=== PATIENT | male | born 1960 ===

== ENCOUNTER 2017-04-03 01:15 | Inpatient (IN) ==
--- NOTE | 2017-04-03 01:42 | Emergency Department Note ---
Arrival - Arrival Chief Complaint: Upper Respiratory Stated Complaint: Upper Respiratory ED Nursing Triage Note: Patient presents via EMS transfer from [facility] for further care of dx of pneumonia. Mode of Arrival: Stretcher Time Seen by Provider: 04/03/17 01:24 - History of Present Illness HPI Narrative: This is a 56-year-old with a history of coronary artery disease status post previous myocardial infarction status post cardiac catheterization with stent placement, congestive heart failure, peripheral vascular disease, chronic renal failure on hemodialysis Monday, type 2 diabetes, hypertension, hyperlipidemia, who smokes a pack of cigarettes per day, with a positive PPD who presented to the [facility] complaining of shortness of breath and a nonproductive cough for the past 3 days associated with low-grade fever where a workup included a chest x-ray and laboratory tests suggesting that the patient had pneumonia. He was transferred to the emergency department at [facility] for admission and intravenous antibiotics he was given Levaquin in the emergency department. Allergies/Adverse Reactions: Allergies Allergy/AdvReac Type Severity Reaction Status Date / Time No Known Allergies Allergy Unverified 05/22/16 23:21 Home Medications: Home Medications Medication Instructions Recorded Confirmed Type Aspirin [Ecotrin] 81 mg PO DAILY 05/23/16 06/13/16 History Atorvastatin [Lipitor] 80 mg PO DAILY 05/23/16 06/13/16 History Calcium Acetate [Phoslo] 3 tablet PO TID 05/23/16 06/13/16 History Carvedilol 6.25 mg PO BID 05/23/16 06/13/16 History Pravastatin [Pravachol] 20 mg PO BEDTIME 05/23/16 06/13/16 History Vit B Cmplx 3/Folic AC/C/Biot 1 tablet PO DAILY 05/23/16 06/13/16 History [Nephro-G[place]na Rx Tablet] Insulin Detemir [Levemir FlexPen] 20 unit SUBCUT BEDTIME 06/13/16 06/13/16 History glyBURIDE [Glyburide] 5 mg PO BID 06/13/16 06/13/16 History Review of System - Review of System Constitutional: Present: fever. Absent: night sweats, weakness Eyes: Absent: redness, vision change Head/Ears/Nose/Throat: Absent: epistaxis, nasal drainage Respiratory: Present: cough. Absent: respiratory distress Cardiovascular: Present: dyspnea on exertion. Absent: chest pain, orthopnea Gastrointestinal: Absent: vomiting, diarrhea, constipation Genitourinary male: Absent: dysuria, hematuria Musculoskeletal: Absent: joint swelling, lower back pain Skin: Absent: change in color, change in hair/nails Neurological: Present: numbness, paresthesias Psychiatric: Absent: anxiety, depression Endocrine: Absent: heat intolerance, polydipsia Hematological/Lymphatic: Absent: easy bruising, lymphadenopathy Allergic/Immunologic: Absent: urticaria, itchy eyes Medical,Surgical,& Family Hx - Medical History Cardio: History of: Congenital Heart Disease, CHF, CAD, Hypertension No history of: Aneurysm, Cardiac Dysrhythmia, Cerebrovascular Disease, [place], Pacemaker, PVD, Valvular Heart Disease, Cardiovascular Problems Neurology: No history of: Brain Aneurysm, Cerebral Hemorrhage, Cerebrovascular Accident , Cerebral Palsy, Dementia, Migraine, Multiple Sclerosis, Parkinson's Disease, Peripheral Neuropathy, Seizures, TIA, Vertigo, Neurologocal Cancer Endocrine: History of: Diabetes Mellitus (IDDM) No history of: Adrenal Disease, Dyslipidemia, Thyroid Disorder, Endocrine Cancer, Endocrine Problems Respiratory: History of: Obstructive Sleep Apnea, Respiratory Problems No history of: Asthma, Bronchitis, COPD, Intubation, Pulmonary Embolism, Pulmonary Hypertension, Pneumonia, Lung Cancer Renal: History of: Renal Failure, Renal Problems No history of: Renal (Kidney) Cancer Genitourinary: No history of: Bladder Problem, Kidney Stones, Prostate Problems, Recurring Urinary Tract Infections, Genitourinary Cancer, Problems Gastrointestinal: History of: GERD No history of: Bowel Obstruction, Clostridium Difficile, Crohn's Disease, Diverticulitis/ Diverticulosis, Esophageal Varices, Gastrointestinal Bleed, Hemorrhoids, Hematochezia, Hepatitis, Liver Problems, Pancreatitis, Polyps, Ulcerative Colitis, Gastrointestinal Cancer, GI Problems Musculoskeletal: History of: Amputation Hematology: No history of: Anemia, Bleeding Problems, Clotting Problems, Sickle Cell Disease, Hematologic Cancer, Blood Disorders - Surgical History Cardiac Surgeries: Sugical HX of: Cardiac Catheterization Patient Denies: Femoral-Popliteal Bypass Graft, Cardiac Surgery, Carotid Endarterectomy, Internal Defibrillator, Vascular Access Devices Thoracic Surgeries: Patient denies;: Kidney (Renal Surgery), Lithotripsy, Nephrectomy, Lobectomy Neurologic Surgeries: Patient denies: Brain Aneurysm, Cerebral Hemorrhage, Neurologic Surgery HEENT Surgeries: Patient denies: Carotid Endarterectomy, Eye Surgery, Thyroid Surgery, Tonsilectomy & Adenoidectomy Abdominal Surgeries: Patient denies: Abdominal Surgery, Appendectomy, Cholecystectomy, Colonoscopy , Gastric Bypass Surgery, EGD, Hernia Repair, Splenectomy Reproductive Surgeries: Patient denies;: Breast Surgery, Cystoscopy, Genitourinary Surgery, Prostate Surgery, Vasectomy Orthopedic Surgeries: Patient denies;: Implanted Devices, Orthopedic Surgery, Spinal Surgery, Total Hip Replacement, Total Knee Replacement - Family History Family History: Reports;: Family Cancer, Family Diabetes, Family Heart Disease, Family Hypertension Denies;: Family Anesthesia Reaction, Family Psychiatric Problems, Family Stroke - Social History Smoking Status: Heavy tobacco smoker Frequency of Alcohol Use: None Type of Drug Use: None Exam Vital Signs: Vital Signs Temperature 99.4 F 04/03/17 01:15 Pulse Rate 93 H 04/03/17 01:15 Respiratory Rate 20 04/03/17 01:15 Blood Pressure 144/73 04/03/17 01:15 O2 Sat by Pulse Oximetry 95 04/03/17 01:15 - General Exam limited due to: ALOC - Head Head exam: Present: atraumatic, normocephalic - Eye Eye exam: Present: PERRL, EOMI - ENT ENT exam: Present: normal exam - Neck Neck exam: Present: normal inspection, full ROM - Chest Chest inspection: Present: normal inspection - Respiratory Respiratory exam: Present: other (Rales both bases) - Abdominal Exam Abdominal exam: Present: soft, normal bowel sounds - Extremities Exam Extremities exam: Present: normal inspection, full ROM - Back Exam Back exam: Present: normal inspection, full ROM - Neurological Exam Neurological exam: Present: alert, oriented X3, CN II-XII intact - Psychiatric Psychiatric exam: Present: normal affect, normal mood - Skin Skin exam: Present: warm, dry
[2017-04-03] MEDS ORDERED: ONDANSETRON 4 MG/2 ML VIAL IV PRN (02:03)
[2017-04-03] MEDS ORDERED: DEXTROSE 50% 25 GM/50 ML SYRINGE IV PRN (02:03)
[2017-04-03] MEDS ORDERED: ACETAMINOPHEN 325 MG TABLET PO PRN (02:03)
[2017-04-03] MEDS ORDERED: GLUCAGON 1 MG VIAL IM PRN (02:03)
[2017-04-03] MEDS ORDERED: ALBUTEROL/IPRATROPIUM 3 ML NEB RESP TX PRN (02:10)
--- NOTE | 2017-04-03 03:43 | Hospitalist History & Physical ---
Assessment and Plan - Time spent with patient Time spent with patient: Greater than 30 minutes (1) CAP (community acquired pneumonia) Status: Acute Assessment and plan: Admit to hospitalist services. Telemetry. O2 per unit protocol. CT chest performed in ED; report pending. Azithromycin 500 mg IV Q24 hours. Ceftriaxone 2000 mg IV Q24 hours. DuoNebs Q6 hours PRN Repeat CBC and CMP in AM. Lovenox 30 mg SQ Q24 hours for DVT prophylaxis. Current Visit: Yes (2) ESRD (end stage renal disease) on dialysis Status: Acute Assessment and plan: Patient dialyzes MWF. Consult Nephrology. Continue home dose multivitamin replacement. Current Visit: Yes (3) CHF (congestive heart failure) Status: Acute Assessment and plan: Continue home dose of Coreg 6.25 mg BID. Continue home dose of atorvastatin 80 mg daily. Current Visit: Yes (4) Diabetes mellitus Status: Chronic Assessment and plan: Hold glyburide for now. Diabetic diet. Lantus 20 units SQ at bedtime. Humalog 5 units SQ ACHS. Accuchecks ACHS with SSI. Current Visit: No Qualifiers: Diabetes mellitus type: type 2 Chronic kidney disease stage: on chronic dialysis (5) Hypertension Status: Chronic Assessment and plan: Continue home dose of Coreg 6.25 mg BID. Current Visit: No Qualifiers: Hypertension type: essential hypertension Qualified Code(s): I10 - Essential (primary) hypertension History of Present Illness Chief complaint: Shortness of breath History of present illness: Mr. Sinclair is a 56 year old male who was transferred to the ED from [facility] with complaints of shortness of breath and nonproductive cough that started upon awakening today. At [facility], he was shown to have a mildly elevated WBC count at 12.1, a chest x-ray showing "bilateral pulmonary interstitial and perihilar opacities", and an ECG showing LVH with strain pattern. He was thought to have pneumonia, was given 750 mg of Levaquin IV and was transferred to our ED due to his extensive comorbid conditions. In the ED, a CT chest was performed with report pending. He denies having a known fever or chills, and he has not been hypoxic since arrival. He has a past medical history of ESRD on HD, HTN, IDDM, CAD s/p stent placement, CHF, left BKA and Hyperlipidemia. He denies ever having a [place]. He additionally reports being treated for an ear infection for 2 weeks. Hospitalist services were consulted for IV antibiotic therapy and management of chronic conditions. Home Medications Medication Instructions Recorded Confirmed Type Aspirin [Ecotrin] 81 mg PO DAILY 05/23/16 06/13/16 History Atorvastatin [Lipitor] 80 mg PO DAILY 05/23/16 06/13/16 History Calcium Acetate [Phoslo] 3 tablet PO TID 05/23/16 06/13/16 History Carvedilol 6.25 mg PO BID 05/23/16 06/13/16 History Pravastatin [Pravachol] 20 mg PO BEDTIME 05/23/16 06/13/16 History Vit B Cmplx 3/Folic AC/C/Biot 1 tablet PO DAILY 05/23/16 06/13/16 History [Nephro-[place] Rx Tablet] Insulin Detemir [Levemir FlexPen] 20 unit SUBCUT BEDTIME 06/13/16 06/13/16 History glyBURIDE [Glyburide] 5 mg PO BID 06/13/16 06/13/16 History Allergies Allergy/AdvReac Type Severity Reaction Status Date / Time No Known Allergies Allergy Unverified 05/22/16 23:21 Medical,Surgical,& Family Hx - Medical History Cardio: History of: Congenital Heart Disease, CHF, CAD, Hypertension No history of: Aneurysm, Cardiac Dysrhythmia, Cerebrovascular Disease, [place], Pacemaker, PVD, Valvular Heart Disease, Cardiovascular Problems Neurology: No history of: Brain Aneurysm, Cerebral Hemorrhage, Cerebrovascular Accident , Cerebral Palsy, Dementia, Migraine, Multiple Sclerosis, Parkinson's Disease, Peripheral Neuropathy, Seizures, TIA, Vertigo, Neurologocal Cancer Endocrine: History of: Diabetes Mellitus (IDDM) No history of: Adrenal Disease, Dyslipidemia, Thyroid Disorder, Endocrine Cancer, Endocrine Problems Respiratory: History of: Obstructive Sleep Apnea, Respiratory Problems No history of: Asthma, Bronchitis, COPD, Intubation, Pulmonary Embolism, Pulmonary Hypertension, Pneumonia, Lung Cancer Renal: History of: Renal Failure, Renal Problems No history of: Renal (Kidney) Cancer Genitourinary: No history of: Bladder Problem, Kidney Stones, Prostate Problems, Recurring Urinary Tract Infections, Genitourinary Cancer, Problems Gastrointestinal: History of: GERD No history of: Bowel Obstruction, Clostridium Difficile, Crohn's Disease, Diverticulitis/ Diverticulosis, Esophageal Varices, Gastrointestinal Bleed, Hemorrhoids, Hematochezia, Hepatitis, Liver Problems, Pancreatitis, Polyps, Ulcerative Colitis, Gastrointestinal Cancer, GI Problems Musculoskeletal: History of: Amputation (left BKA) Hematology: No history of: Anemia, Bleeding Problems, Clotting Problems, Sickle Cell Disease, Hematologic Cancer, Blood Disorders - Surgical History Cardiac Surgeries: Sugical HX of: Cardiac Catheterization Patient Denies: Femoral-Popliteal Bypass Graft, Cardiac Surgery, Carotid Endarterectomy, Internal Defibrillator, Vascular Access Devices Thoracic Surgeries: Patient denies;: Kidney (Renal Surgery), Lithotripsy, Nephrectomy, Lobectomy Neurologic Surgeries: Patient denies: Brain Aneurysm, Cerebral Hemorrhage, Neurologic Surgery HEENT Surgeries: Patient denies: Carotid Endarterectomy, Eye Surgery, Thyroid Surgery, Tonsilectomy & Adenoidectomy Abdominal Surgeries: Patient denies: Abdominal Surgery, Appendectomy, Cholecystectomy, Colonoscopy , Gastric Bypass Surgery, EGD, Hernia Repair, Splenectomy Reproductive Surgeries: Patient denies;: Breast Surgery, Cystoscopy, Genitourinary Surgery, Prostate Surgery, Vasectomy Orthopedic Surgeries: Surgical HX of;: Orthopedic Surgery (left BKA) Patient denies;: Implanted Devices, Spinal Surgery, Total Hip Replacement, Total Knee Replacement - Family History Family History: Reports;: Family Cancer, Family Diabetes, Family Heart Disease, Family Hypertension Denies;: Family Anesthesia Reaction, Family Psychiatric Problems, Family Stroke - Social History Smoking Status: Current every day smoker Have you smoked in the last 12 months: Yes Time spent discussing smoking cessation with patient: 3 to 10 minutes Frequency of Alcohol Use: None Type of Drug Use: None Marital Status: Lives With:: Spouse Functional capacity: independent ambulation 12 point system: reviewed and no additional remarkable complaints except as stated - Constitutional Constitutional: Absent: chills, fever(s), lethargy, malaise, weakness - EENT Eyes: Absent: blurry vision, diplopia, loss of vision Ears: Present: other (Reports being treated for right ear infection x 2 weeks. ) - Cardiovascular Cardiovascular: Present: dyspnea. Absent: chest pain at rest, chest pain with activity, edema, lightheadedness, palpitations - Respiratory Respiratory: Present: cough (nonproductive), dyspnea. Absent: wheezing - Gastrointestinal Gastrointestinal: Absent: constipation, diarrhea, nausea, vomiting - Genitourinary Genitourinary: Absent: flank pain - Musculoskeletal Musculoskeletal: Absent: arthralgias, joint swelling, muscle weakness, myalgias - Neurological Neurological: Absent: dizziness, numbness, paresthesias - Psychiatric Psychiatric: Absent: anxiety, depression - Endocrine Endocrine: Absent: polydipsia, polyphagia, polyuria - Hematologic/Lymphatic Hematologic/Lymphatic: Absent: easy bleeding, easy bruising Exam - Constitutional Vitals: Period Temp Pulse Resp BP Sys/Burgess Pulse Ox Last 24 Hr 99.4 F 93 18-20 144-144/73-73 95 Exam: Constitutional System: Low grade temp of 99.4. Awake, alert and oriented x 3. No distress. No tremulousness. Head: Normocephalic, atraumatic. Ears, Nose and Throat System: No pain or tenderness. No epistaxis or discharge Eyes System: Pupils equal, round, and reactive. Extraocular muscles intact. Neck: Supple, without adenopathy, No jugular venous distention. No thyromegaly, neck mass, or prior surgery apparent. Respiratory System: Left posterior rales noted. Cardiovascular System: Heart with regular rate and rhythm. No murmur. GI System: Abdomen soft, nontender. Normo active bowel sounds present. Musculoskeletal System: Left BKA noted. Right limb with no pedal edema. Full distal pulses on right. Normal capillary refill on RLE. Neurological System: No discernable sensory deficit. No aphasia Psychiatric System: Conversation is rational Results - Labs Lab Results: I have reviewed the past 24 hour labs
[2017-04-03] MEDS: cefTRIAXone 2,000 MG in SODIUM CHLORIDE 0.9% 100 ML IV SCH (04:52)
[2017-04-03] MEDS: AZITHROMYCIN INJ 500 MG in SODIUM CHLORIDE 0.9% 250 ML IV SCH (05:34)
[2017-04-03] MEDS: ENOXAPARIN 30 MG/0.3 ML SYRINGE SUBCUT SCH (05:36)
[2017-04-03 06:25] LABS: Basophils # 0.1 10*3/uL (0.0-0.2); Basophils % 0.5 % (0.0-0.8); Eosinophils # 0.2 10*3/uL (0.0-0.87); Eosinophils % 1.7 % (0.00-10.9); Hematocrit 31.7 VOL% (42.0-52.0); Hemoglobin 10.6 GM/DL (14.0-18.0); Immature Granulocytes % 0.4 %; Immature Granulocytes Absolute 0.05 #; Lymphocytes # 1.6 10*3/uL (1.4-4.0); Lymphocytes % 13.8 % (21.2-54.2); Mean Corpuscular HGB Conc 33.4 GM/DL (32-36); Mean Corpuscular Hemoglobin 32 PG (27-34); Mean Corpuscular Volume 94.9 FL (87-102); Mean Platelet Volume 10.6 FL (9.6-12.0); Monocytes # 0.5 10*3/uL (0.11-0.8); Monocytes % 4.4 % (1.7-12.7); Neutrophils # 9.1 10*3/uL (1.4-7.4); Neutrophils % 79.2 % (38.7-73.9); Platelet Count 220 T/CUMM (130-400); Red Blood Count 3.34 MC/CUMM (3.8-5.5); Red Cell Distribution Width 15.3 % (9.3-17.3); White Blood Count 11.5 T/CUMM (4-12)
--- NOTE | 2017-04-03 06:47 | CT Report ---
CT of the chest without contrast. Indication: Pneumonia versus atelectasis. No prior study. Axial images were obtained with sagittal and coronal reconstructions. No prior studies. There is a preliminary report from [facility]. The thyroid gland is normal in size. It is slightly heterogeneous. There is no hilar there is no supraclavicular or axillary lymphadenopathy. There is heavy calcific plaque present within the origins of the great vessels. The thoracic aorta contains calcification. It is nondilated. The heart is enlarged. There is prominent coronary artery calcification. There is a pericardial effusion. No definite hilar or mediastinal lymphadenopathy. This evaluation is limited due to the lack of contrast. At the thoracic inlet, posterior to the airway, and to the right of the esophagus, there is mediastinal air present. I do not see a definite connection between the airway or esophagus. The coronal views do not demonstrate a definite diverticulum configuration. No mediastinal hematoma is seen. There are small bilateral pleural effusions, right greater than left. Within the right upper lobe, laterally, there is a 4.5 mm irregular pulmonary nodule, with small punctate satellite nodules. This is located within the parenchyma. Within the mid to lower lung norris, there are groundglass and alveolar infiltrates. In addition, there is there is bilateral atelectasis, right greater than left. There is prominence of the interstitial markings, with intralobar septal thickening present at the bases. Heavy calcific plaque extends into the abdominal aorta, and the the proximal and distal aspects of both renal arteries. Concurrent nephrolithiasis cannot be excluded. There is heavy plaque at the origin of the celiac and SMA arteries. The osseous structures are unremarkable. Impression: 1. Within the right upper lobe, there is an irregular 4.5 mm pulmonary nodule. Infectious or neoplastic etiology should be considered. Due to the presence of additional infiltrates, I would recommend a follow-up exam in 3 months, and then determine whether or not surveillance imaging is necessary. 2. Bilateral basilar interstitial and alveolar infiltrates, involving the mid and lower lung norris. This pattern is suggestive of congestive heart failure, but pneumonia could also have this appearance. 3. Mild atelectasis at the bases, right greater than left. 4. Small pleural effusions, right greater than left. 5. Cardiomegaly. 6. Atherosclerosis. 7. Small pericardial effusion. 8. Nonspecific mediastinal air, to the right of the esophagus and posterior to the airway, at the thoracic inlet. Correlation with history of trauma, line placement, or coughing or retching. No definite configuration of diverticulum. The CT exam was performed using one or more of the following dose reduction techniques: Automated exposure control, adjustment of the mA and/or kV according to patient size, or use of iterative reconstruction technique. PROCEDURE INTERPRETED AT [facility] DEPARTMENT OF RADIOLOGY Final Report Signed by: Dr. Genia Manning
[2017-04-03 06:54] LABS: Osmolality,Calculated 294.5 MOS/KG (273-304); Potassium 4.4 MMOL/L (3.5-5.1)
[2017-04-03] MEDS: ATORVASTATIN 80 MG TABLET PO SCH (09:21)
[2017-04-03] MEDS: CARVEDILOL 6.25 MG TABLET PO SCH ×2 (09:21→20:58)
[2017-04-03] MEDS: PANTOPRAZOLE 40 MG TABLET PO SCH (09:21)
[2017-04-03] MEDS: CALCIUM ACETATE 667 MG CAPSULE PO SCH ×3 (09:22→20:58)
[2017-04-03] MEDS: INSULIN LISPRO 100 UNIT/ML SUBCUT SCH ×4 (09:22→21:11)
[2017-04-03] MEDS: ASPIRIN EC 81 MG TABLET PO SCH (09:22)
[2017-04-03] MEDS: MULTIVITAMIN (BEROCCA) TABLET PO SCH (09:22)
--- NOTE | 2017-04-03 11:34 | Nephrology Consult Note ---
History of Present Illness Chief complaint: ESRD History of present illness: Mr. Sinclair is a 56 year old male with end-stage renal disease who became short of breath yesterday and was transferred here from [facility]. He dialyzes Monday and [place]. On physical exam he is in no distress he is currently breathing without supplemental oxygen and is stable chest is clear heart without rub or gallop no peripheral edema is noted. A chest x-ray is not available but CT scan has been done. Laboratory reflects a hematocrit of 31%. Impression end-stage renal disease #2 shortness of breath with volume overload versus other etiology Plan hemodialysis today and 3 times weekly Home Medications Medication Instructions Recorded Confirmed Type Aspirin [Ecotrin] 81 mg PO DAILY 05/23/16 04/03/17 History Atorvastatin [Lipitor] 80 mg PO DAILY 05/23/16 04/03/17 History Calcium Acetate [Phoslo] 3 tablet PO TID 05/23/16 04/03/17 History Carvedilol 6.25 mg PO BID 05/23/16 04/03/17 History Pravastatin [Pravachol] 20 mg PO BEDTIME 05/23/16 04/03/17 History Vit B Cmplx 3/Folic AC/C/Biot 1 tablet PO DAILY 05/23/16 04/03/17 History [Nephro-[place] Rx Tablet] Insulin Detemir [Levemir FlexPen] 20 unit SUBCUT BEDTIME 06/13/16 04/03/17 History glyBURIDE [Glyburide] 5 mg PO BID 06/13/16 04/03/17 History Allergies Allergy/AdvReac Type Severity Reaction Status Date / Time No Known Allergies Allergy Unverified 05/22/16 23:21 Medical,Surgical,& Family Hx - Medical History Cardio: History of: Congenital Heart Disease, CHF, CAD, Hypertension No history of: Aneurysm, Cardiac Dysrhythmia, Cerebrovascular Disease, [place], Pacemaker, PVD, Valvular Heart Disease, Cardiovascular Problems Neurology: No history of: Brain Aneurysm, Cerebral Hemorrhage, Cerebrovascular Accident , Cerebral Palsy, Dementia, Migraine, Multiple Sclerosis, Parkinson's Disease, Peripheral Neuropathy, Seizures, TIA, Vertigo, Neurologocal Cancer HEENT: History of: Ear Problem, Eye Problem No history of: Glaucoma, Oral Cancer, HEENT Problems Endocrine: History of: Diabetes Mellitus (IDDM) No history of: Adrenal Disease, Dyslipidemia, Thyroid Disorder, Endocrine Cancer, Endocrine Problems Rheumatology: No history of;: Fibromyalgia, Gout, Myasthenia Gravis, Rheumatoid Arthritis, Rheumatological Problems Respiratory: History of: Obstructive Sleep Apnea, Respiratory Problems No history of: Asthma, Bronchitis, COPD, Intubation, Pulmonary Embolism, Pulmonary Hypertension, Pneumonia, Lung Cancer Renal: History of: Renal Failure, Renal Problems No history of: Renal (Kidney) Cancer Genitourinary: No history of: Bladder Problem, Kidney Stones, Prostate Problems, Recurring Urinary Tract Infections, Genitourinary Cancer, Problems Gastrointestinal: History of: GERD No history of: Bowel Obstruction, Clostridium Difficile, Crohn's Disease, Diverticulitis/ Diverticulosis, Esophageal Varices, Gastrointestinal Bleed, Hemorrhoids, Hematochezia, Hepatitis, Liver Problems, Pancreatitis, Polyps, Ulcerative Colitis, Gastrointestinal Cancer, GI Problems Musculoskeletal: History of: Amputation (left BKA) No history of: Back/Neck Problems, Degenerative Disk Disease, Herniated Disk , Osteoporosis, Musculoskeletal Cancer, Musculoskeletal Problems Hematology: No history of: Anemia, Bleeding Problems, Clotting Problems, Sickle Cell Disease, Hematologic Cancer, Blood Disorders - Surgical History Cardiac Surgeries: Sugical HX of: Cardiac Catheterization Patient Denies: Femoral-Popliteal Bypass Graft, Cardiac Surgery, Carotid Endarterectomy, Internal Defibrillator, Vascular Access Devices Thoracic Surgeries: Patient denies;: Kidney (Renal Surgery), Lithotripsy, Nephrectomy, Lobectomy Neurologic Surgeries: Patient denies: Brain Aneurysm, Cerebral Hemorrhage, Neurologic Surgery HEENT Surgeries: Patient denies: Carotid Endarterectomy, Eye Surgery, Thyroid Surgery, Tonsilectomy & Adenoidectomy Abdominal Surgeries: Patient denies: Abdominal Surgery, Appendectomy, Cholecystectomy, Colonoscopy , Gastric Bypass Surgery, EGD, Hernia Repair, Splenectomy Reproductive Surgeries: Patient denies;: Breast Surgery, Cystoscopy, Genitourinary Surgery, Prostate Surgery, Vasectomy Orthopedic Surgeries: Surgical HX of;: Orthopedic Surgery (left BKA) Patient denies;: Implanted Devices, Spinal Surgery, Total Hip Replacement, Total Knee Replacement - Family History Family History: Reports;: Family Cancer, Family Diabetes, Family Heart Disease, Family Hypertension Denies;: Family Anesthesia Reaction, Family Psychiatric Problems, Family Stroke - Social History Smoking Status: Current every day smoker Frequency of Alcohol Use: None Type of Drug Use: None Review of Systems 12 point system: reviewed and no additional remarkable complaints except as stated Exam - Vital Signs Vital signs: Period Temp Pulse Resp BP Sys/Burgess Pulse Ox Last 24 Hr 98.0 F-99.4 F 93-100 18-20 121-152/70-79 95-100 - General Appearance General appearance: well-developed, well-nourished, appears started age Neck: no JVD, no thyromegaly, no carotid bruit, supple Respiratory: no kyphosis, no scoliosis Cardiology: no murmurs, no rub, no gallops, no edema, regular rate, regular rhythm, normal S1, normal S2 Gastrointestinal: normoactive bowel sounds Integumentary: no rash, warm and dry Neurologic: no focal deficit, no asterixis, alert and oriented x3, reflexes 2+ and symmetric, gait normal, strength 5/5 Musculoskeletal: no deformities, no erythema, no cyanosis, no clubbing Psychiatric: mood/affect appropriate, cooperative Results - Labs CBC & BMP: 04/03/17 06:08 04/03/17 06:08 Specialty Discharge - Follow Up or Referrals - Speciality Discharge Instructions Nephrology Instructions: Support with hemodialysis
--- NOTE | 2017-04-03 11:48 | Dialysis Note ---
Dialysis Note - Dialysis Note Mr. former seen during his hemodialysis. He is doing well. Plan is to continue with Monday dialysis here.
[2017-04-03] MEDS: INSULIN GLARGINE 100 UNIT/ML SUBCUT SCH (21:11)
[2017-04-04] MEDS: cefTRIAXone 2,000 MG in SODIUM CHLORIDE 0.9% 100 ML IV SCH (04:09)
[2017-04-04] MEDS: AZITHROMYCIN INJ 500 MG in SODIUM CHLORIDE 0.9% 250 ML IV SCH (05:07)
[2017-04-04 05:48] LABS: Basophils # 0.1 10*3/uL (0.0-0.2); Basophils % 0.7 % (0.0-0.8); Eosinophils # 0.3 10*3/uL (0.0-0.87); Eosinophils % 3.6 % (0.00-10.9); Hematocrit 31.4 VOL% (42.0-52.0); Hemoglobin 10.7 GM/DL (14.0-18.0); Immature Granulocytes % 0.4 %; Immature Granulocytes Absolute 0.03 #; Lymphocytes % 27.3 % (21.2-54.2); Mean Corpuscular HGB Conc 34.1 GM/DL (32-36); Mean Corpuscular Hemoglobin 32 PG (27-34); Mean Corpuscular Volume 94.3 FL (87-102); Mean Platelet Volume 10.8 FL (9.6-12.0); Monocytes # 0.6 10*3/uL (0.11-0.8); Monocytes % 8.5 % (1.7-12.7); Neutrophils # 4.3 10*3/uL (1.4-7.4); Neutrophils % 59.5 % (38.7-73.9); Platelet Count 230 T/CUMM (130-400); Red Blood Count 3.33 MC/CUMM (3.8-5.5); Red Cell Distribution Width 15.2 % (9.3-17.3); White Blood Count 7.2 T/CUMM (4-12)
[2017-04-04 06:18] LABS: Albumin 3.3 G/DL (3.4-5.0); Bilirubin,Total 0.5 MG/DL (0.2-1.0); Calcium 9.4 MG/DL (8.5-10.1); Osmolality,Calculated 285.5 MOS/KG (273-304); Potassium 4.9 MMOL/L (3.5-5.1); Total Protein 7.4 G/DL (6.4-8.3)
[2017-04-04] MEDS: ENOXAPARIN 30 MG/0.3 ML SYRINGE SUBCUT SCH (06:27)
[2017-04-04] MEDS: INSULIN LISPRO 100 UNIT/ML SUBCUT SCH ×4 (07:35→22:18)
--- NOTE | 2017-04-04 08:04 | XRay Report ---
2 view chest. Indication: Shortness of breath. Comparison: The heart is decreased in size, still mildly enlarged. The pulmonary vasculature is normal. The infiltrates have almost completely cleared with mild interstitial prominence persisting at the lung bases. Tiny bilateral pleural effusions are noted on the lateral view. The osseous structures are unremarkable. Impression: Significant interval improvement. Mild abnormality remains. PROCEDURE INTERPRETED AT [facility] DEPARTMENT OF RADIOLOGY Final Report Signed by: Dr. Genia Manning
--- NOTE | 2017-04-04 08:23 | Nephrology Progress Note ---
Nephrology - PN: Subj Interval history: Mr. Sinclair is seen f/u of his ESRD. His CXR this AM is wnl. Chest is clear. S/P Left leg amp. Denies sob. Tolerated dialysis well yesterday. Hct is 31. Appears to be at baseline. ? home soon. Exam (PN)-Nephrology - Vital Signs Vital signs: Period Temp Pulse Resp BP Sys/Burgess Pulse Ox Last 24 Hr 97.1 F-99.2 F 76-88 12-20 104-130/53-91 98-100 - Lab 04/04/17 04:54 04/04/17 04:54 Most recent lab results Calcium 9.4 MG/DL (8.5-10.1) 04/04/17 04:54
[2017-04-04] MEDS: MULTIVITAMIN (BEROCCA) TABLET PO SCH (09:23)
[2017-04-04] MEDS: CARVEDILOL 6.25 MG TABLET PO SCH ×3 (09:23→22:18)
[2017-04-04] MEDS: ATORVASTATIN 80 MG TABLET PO SCH (09:23)
[2017-04-04] MEDS: ASPIRIN EC 81 MG TABLET PO SCH (09:23)
[2017-04-04] MEDS: PANTOPRAZOLE 40 MG TABLET PO SCH (09:23)
[2017-04-04] MEDS: CALCIUM ACETATE 667 MG CAPSULE PO SCH ×3 (09:23→22:17)
--- NOTE | 2017-04-04 12:30 | Consultation ---
Assessment and Plan - Time spent with patient Time spent with patient: Less than 30 minutes (1) Impacted cerumen of both ears Status: Acute Assessment and plan: No evidence of gross infection currently I would like patient follow-up as an outpatient in my office for I have access to microscope and instrumentation for cleaning of the patient's external auditory canals. I would be afraid if we added Debrox or hydrogen peroxide and we would make his hearing worse as it would probably clog up the ear so we will wait until we see him in the office. Thank you very much for this consult would like to see this patient after discharge in the office. Current Visit: Yes (2) Conductive hearing loss of both ears Status: Acute Current Visit: Yes (3) Otalgia of both ears Status: Acute Current Visit: Yes History of Present Illness - Data of Consult Patient: new to practice Consult date: 04/04/17 Requesting Physician: Jessica Arnold - Consult Narrative Reason for consult: Bilateral cerumen impaction History of present illness: Mr. Sinclair is a 56 year old male with bilateral cerumen impaction possible foreign body ENT is consulted to evaluate. Patient notes he does use Q-tips, he is noted that his conductive hearing loss has worsened over the past several months. Additionally he does note a fullness and irritation in both ears. Is made worse with using Q-tips. CC: Jessica Arnold MD - Home Medications and Allergies Home Medications: Home Medications Medication Instructions Recorded Confirmed Type Aspirin [Ecotrin] 81 mg PO DAILY 05/23/16 04/03/17 History Atorvastatin [Lipitor] 80 mg PO DAILY 05/23/16 04/03/17 History Calcium Acetate [Phoslo] 3 tablet PO TID 05/23/16 04/03/17 History Carvedilol 6.25 mg PO BID 05/23/16 04/03/17 History Pravastatin [Pravachol] 20 mg PO BEDTIME 05/23/16 04/03/17 History Vit B Cmplx 3/Folic AC/C/Biot 1 tablet PO DAILY 05/23/16 04/03/17 History [Nephro-Glenna Rx Tablet] Insulin Detemir [Levemir FlexPen] 20 unit SUBCUT BEDTIME 06/13/16 04/03/17 History glyBURIDE [Glyburide] 5 mg PO BID 06/13/16 04/03/17 History Allergies/Adverse Reactions: Allergies Allergy/AdvReac Type Severity Reaction Status Date / Time No Known Allergies Allergy Unverified 05/22/16 23:21 12 point system: reviewed and no additional remarkable complaints except as stated Medical,Surgical,& Family Hx - Medical History Cardio: History of: Congenital Heart Disease, CHF, CAD, Hypertension No history of: Aneurysm, Cardiac Dysrhythmia, Cerebrovascular Disease, NC, Pacemaker, PVD, Valvular Heart Disease, Cardiovascular Problems Neurology: No history of: Brain Aneurysm, Cerebral Hemorrhage, Cerebrovascular Accident , Cerebral Palsy, Dementia, Migraine, Multiple Sclerosis, Parkinson's Disease, Peripheral Neuropathy, Seizures, TIA, Vertigo, Neurologocal Cancer HEENT: History of: Ear Problem, Eye Problem No history of: Glaucoma, Oral Cancer, HEENT Problems Endocrine: History of: Diabetes Mellitus (IDDM) No history of: Adrenal Disease, Dyslipidemia, Thyroid Disorder, Endocrine Cancer, Endocrine Problems Rheumatology: No history of;: Fibromyalgia, Gout, Myasthenia Gravis, Rheumatoid Arthritis, Rheumatological Problems Respiratory: History of: Obstructive Sleep Apnea, Respiratory Problems No history of: Asthma, Bronchitis, COPD, Intubation, Pulmonary Embolism, Pulmonary Hypertension, Pneumonia, Lung Cancer Renal: History of: Renal Failure, Renal Problems No history of: Renal (Kidney) Cancer Genitourinary: No history of: Bladder Problem, Kidney Stones, Prostate Problems, Recurring Urinary Tract Infections, Genitourinary Cancer, Problems Gastrointestinal: History of: GERD No history of: Bowel Obstruction, Clostridium Difficile, Crohn's Disease, Diverticulitis/ Diverticulosis, Esophageal Varices, Gastrointestinal Bleed, Hemorrhoids, Hematochezia, Hepatitis, Liver Problems, Pancreatitis, Polyps, Ulcerative Colitis, Gastrointestinal Cancer, GI Problems Musculoskeletal: History of: Amputation (left BKA) No history of: Back/Neck Problems, Degenerative Disk Disease, Herniated Disk , Osteoporosis, Musculoskeletal Cancer, Musculoskeletal Problems Hematology: No history of: Anemia, Bleeding Problems, Clotting Problems, Sickle Cell Disease, Hematologic Cancer, Blood Disorders - Surgical History Cardiac Surgeries: Sugical HX of: Cardiac Catheterization Patient Denies: Femoral-Popliteal Bypass Graft, Cardiac Surgery, Carotid Endarterectomy, Internal Defibrillator, Vascular Access Devices Thoracic Surgeries: Patient denies;: Kidney (Renal Surgery), Lithotripsy, Nephrectomy, Lobectomy Neurologic Surgeries: Patient denies: Brain Aneurysm, Cerebral Hemorrhage, Neurologic Surgery HEENT Surgeries: Patient denies: Carotid Endarterectomy, Eye Surgery, Thyroid Surgery, Tonsilectomy & Adenoidectomy Abdominal Surgeries: Patient denies: Abdominal Surgery, Appendectomy, Cholecystectomy, Colonoscopy , Gastric Bypass Surgery, EGD, Hernia Repair, Splenectomy Reproductive Surgeries: Patient denies;: Breast Surgery, Cystoscopy, Genitourinary Surgery, Prostate Surgery, Vasectomy Orthopedic Surgeries: Surgical HX of;: Orthopedic Surgery (left BKA) Patient denies;: Implanted Devices, Spinal Surgery, Total Hip Replacement, Total Knee Replacement - Family History Family History: Reports;: Family Cancer, Family Diabetes, Family Heart Disease, Family Hypertension Denies;: Family Anesthesia Reaction, Family Psychiatric Problems, Family Stroke - Social History Smoking Status: Current every day smoker Frequency of Alcohol Use: None Type of Drug Use: None Exam - Constitutional Vitals: Period Temp Pulse Resp BP Sys/Burgess Pulse Ox Last 24 Hr 97.1 F-99.2 F 76-88 12-20 104-130/53-91 98-100 General appearance: normal weight, no acute distress - Head Head exam: Present: normal inspection, normocephalic - Eye Eye exam: Present: EOMI Pupils: Present: AWILDA - ENT ENT exam: Present: normal exam, normal oropharynx - Expanded ENT Exam TM exam: cerumen impaction: Bilateral TM (Unable to view the tympanic membranes bilaterally. No gross evidence of infection there may possibly being a foreign body in the right external auditory canal consistent potentially with the end of the Q-tip. But since it does not look infected at this point I would suggest follow-up as an outpatient) Mouth exam: Present: normal external inspection Throat exam: Present: normal inspection - Neck Neck exam: Present: normal inspection - Respiratory Respiratory exam: Present: other (No shortness of breath or difficulty breathing ) - GI/Abdominal GI/Abdominal exam: Present: normal bowel sounds - Extremities Exam Extremities exam: Present: normal inspection, normal capillary refill - Back Exam Back exam: Present: normal inspection - Neurological Exam Neurological exam: Present: alert, oriented X3, CN II-XII intact - Psychiatric Psychiatric exam: Present: normal affect, normal mood - Skin Skin exam: Present: normal color, warm Results - Labs CBC & BMP: 04/04/17 04:54 04/04/17 04:54 Lab Results: I have reviewed the past 24 hour labs Quality Measures - Stroke Symptom Onset Unknown: No
--- NOTE | 2017-04-04 15:04 | Hospitalist Progress Note ---
Assessment and Plan (1) Impacted cerumen of both ears Status: Acute Assessment and plan: Dr Sebastian wants to treat as outpatient. Current Visit: Yes (2) CAP (community acquired pneumonia) Status: Acute Assessment and plan: continue with IV antibiotics,nebs. will get Bc and SC Current Visit: Yes (3) ESRD (end stage renal disease) on dialysis Status: Acute Assessment and plan: continue with Hd. Nephrology is following Current Visit: Yes (4) Diabetes mellitus Status: Chronic Assessment and plan: stable on current regime, will get HbA1c level Current Visit: No Qualifiers: Diabetes mellitus type: type 2 Chronic kidney disease stage: on chronic dialysis (5) Hypertension Status: Chronic Assessment and plan: stable Current Visit: No Qualifiers: Hypertension type: essential hypertension Qualified Code(s): I10 - Essential (primary) hypertension (6) CHF (congestive heart failure) Status: Acute Assessment and plan: stable Current Visit: Yes (7) Dyslipidemia Status: Acute Assessment and plan: continue on statins Current Visit: Yes Hospitalist: Subjective Interval history: Patient seen. He complained of right ear infection.On exam, I noted bilateral cerumen impaction. Dr Sebastian has seen. Exam - Constitutional Vitals: Period Temp Pulse Resp BP Sys/Burgess Pulse Ox Last 24 Hr 97.1 F-99.2 F 76-88 12-20 104-130/53-91 96-100 General appearance: no acute distress - Head Head exam: Present: normal inspection - Expanded ENT Exam Mouth exam: Present: normal external inspection Throat exam: Present: normal inspection - Cardiovascular Cardiovascular exam: Present: regular rate and rhythm - GI/Abdominal GI/Abdominal exam: Present: normal bowel sounds - Extremities Exam Extremities exam: Present: normal inspection Results - Labs CBC & BMP: 04/04/17 04:54 04/04/17 04:54 Lab Results: I have reviewed the past 24 hour labs Quality Measures - Stroke Symptom Onset Unknown: No
[2017-04-04] MEDS: INSULIN GLARGINE 100 UNIT/ML SUBCUT SCH (22:18)
[2017-04-05] MEDS: cefTRIAXone 2,000 MG in SODIUM CHLORIDE 0.9% 100 ML IV SCH (04:57)
[2017-04-05] MEDS: AZITHROMYCIN INJ 500 MG in SODIUM CHLORIDE 0.9% 250 ML IV SCH (05:30)
[2017-04-05] MEDS: ENOXAPARIN 30 MG/0.3 ML SYRINGE SUBCUT SCH (06:41)
--- NOTE | 2017-04-05 08:19 | Nephrology Progress Note ---
Nephrology - PN: Subj Interval history: Mr. Sinclair seen in follow-up of his end-stage renal disease. He has been afebrile since admission and had a normal chest x-ray earlier. His chest is clear and is not short of breath. He will go for his regularly scheduled dialysis today and I think he is able to be discharged following that unless there is a problem that is not apparent. Exam (PN)-Nephrology - Vital Signs Vital signs: Period Temp Pulse Resp BP Sys/Burgess Pulse Ox Last 24 Hr 96.5 F-98.5 F 79-88 18-20 119-143/67-80 94-97 - Lab 04/04/17 04:54 04/04/17 04:54 Most recent lab results Calcium 9.4 MG/DL (8.5-10.1) 04/04/17 04:54
[2017-04-05] MEDS: CALCIUM ACETATE 667 MG CAPSULE PO SCH ×3 (09:00→17:10)
--- NOTE | 2017-04-05 09:50 | Dialysis Note ---
Dialysis Note - Dialysis Note Patient seen on dialysis. He is tolerating the procedure. Blood pressure 129/ 71. Cardiovascular is regular rate. Lungs are clear to auscultation. Abdomen is soft.
[2017-04-05] MEDS: INSULIN LISPRO 100 UNIT/ML SUBCUT SCH ×4 (12:54→21:47)
[2017-04-05] MEDS: CARVEDILOL 6.25 MG TABLET PO SCH ×2 (13:24→21:45)
[2017-04-05] MEDS: PANTOPRAZOLE 40 MG TABLET PO SCH (13:24)
[2017-04-05] MEDS: ATORVASTATIN 80 MG TABLET PO SCH (13:24)
[2017-04-05] MEDS: MULTIVITAMIN (BEROCCA) TABLET PO SCH (13:24)
[2017-04-05] MEDS: ASPIRIN EC 81 MG TABLET PO SCH (13:24)
--- NOTE | 2017-04-05 14:50 | Hospitalist Progress Note ---
Assessment and Plan (1) Impacted cerumen of both ears Status: Acute Assessment and plan: Dr Sebastian wantchristian to treat as outpatient. Current Visit: Yes (2) CAP (community acquired pneumonia) Status: Acute Assessment and plan: continue with IV antibiotics,nebs.SC-noted.Much improved. Follow BC Current Visit: Yes (3) ESRD (end stage renal disease) on dialysis Status: Acute Assessment and plan: continue with HD. Nephrology is following Current Visit: Yes (4) Diabetes mellitus Status: Chronic Assessment and plan: stable on current regime, HbA1c level-7.8 Current Visit: No Qualifiers: Diabetes mellitus type: type 2 Chronic kidney disease stage: on chronic dialysis (5) Hypertension Status: Chronic Assessment and plan: stable Current Visit: No Qualifiers: Hypertension type: essential hypertension Qualified Code(s): I10 - Essential (primary) hypertension (6) CHF (congestive heart failure) Status: Acute Assessment and plan: stable Current Visit: Yes (7) Dyslipidemia Status: Acute Assessment and plan: continue on statins Current Visit: Yes Hospitalist: Subjective Interval history: Patient had dialysis today.We will hopefully dc in am Exam - Constitutional Vitals: Period Temp Pulse Resp BP Sys/Burgess Pulse Ox Last 24 Hr 96.5 F-98.5 F 80-91 18-20 119-146/67-80 94-98 General appearance: no acute distress - Expanded ENT Exam Mouth exam: Present: normal external inspection Throat exam: Present: normal inspection - Respiratory Respiratory exam: Present: clear to auscultation bilaterally - Cardiovascular Cardiovascular exam: Present: regular rate and rhythm - GI/Abdominal GI/Abdominal exam: Present: normal bowel sounds - Extremities Exam Extremities exam: Present: normal inspection Results - Labs CBC & BMP: 04/04/17 04:54 04/04/17 04:54 Lab Results: I have reviewed the past 24 hour labs Quality Measures - Stroke Symptom Onset Unknown: No
[2017-04-05] MEDS: INSULIN GLARGINE 100 UNIT/ML SUBCUT SCH (21:46)
[2017-04-06] MEDS: cefTRIAXone 2,000 MG in SODIUM CHLORIDE 0.9% 100 ML IV SCH (04:12)
[2017-04-06] MEDS: ENOXAPARIN 30 MG/0.3 ML SYRINGE SUBCUT SCH (05:19)
[2017-04-06] MEDS: AZITHROMYCIN INJ 500 MG in SODIUM CHLORIDE 0.9% 250 ML IV SCH (05:21)
--- NOTE | 2017-04-06 08:28 | Nephrology Progress Note ---
Nephrology - PN: Subj Interval history: Mr. Sinclair is seen in follow-up of his end-stage renal disease. He continues to remain afebrile and is doing well. He was dialyzed yesterday and had no difficulties. Today's chest is clear and he is anticipating discharge home. He will be dialyzed as an outpatient as per his usual schedule. Exam (PN)-Nephrology - Vital Signs Vital signs: Period Temp Pulse Resp BP Sys/Burgess Pulse Ox Last 24 Hr 96.7 F-98.7 F 78-91 18-20 115-146/54-78 96-99 - Lab 04/04/17 04:54 04/04/17 04:54 Most recent lab results Calcium 9.4 MG/DL (8.5-10.1) 04/04/17 04:54
--- NOTE | 2017-04-06 09:07 | Discharge Summary ---
<Lore Simpson - Last Filed: 04/06/17 09:03> Hospital Course - Hospital Course Hospital Course: 56-year-old male with history of hypertension, diabetes, CHF, end-stage renal disease on hemodialysis transferred from the [facility] with shortness of breath and nonproductive cough. He was admitted to the hospitalist service with community-acquired pneumonia and started on IV antibiotics and breathing treatments. Dr. Painter from nephrology was consulted to assist in her hemodialysis needs. Dr. Sebastian was also consulted for ENT for bilateral cerumen impaction and hearing loss. He found no evidence of gross infection and he would like to follow-up with the patient in his office after discharge for microscope and instrumentation for cleaning of the patient's external auditory canals. Patient is afebrile vital signs are stable and he is feeling much better. BC and sputum cultures were negative. He feels fine this am, ready to be dcd. He will be discharged home with antibiotics for his pneumonia and a follow-up visit with his primary care physician along with Dr. Sebastian for professional ear cleaning. Care coordination, chart review, and completed discharge paperwork took approximately 37 minutes. - Time spent with patient Time with patient DS: Greater than 30 minutes Discharge Plan - Discharge Data Disposition: Disch To Home/Self Care - Discharge Medications New Acetaminophen Tab [Tylenol Tab] 325 mg PO Q4H PRN tablet PRN Reason: fever, headache/body aches Levofloxacin Tab [Levaquin Tab] 250 mg PO DAILY #10 tablet Continue Carvedilol 6.25 mg PO BID Calcium Acetate [Phoslo] 3 tablet PO TID Atorvastatin [Lipitor] 80 mg PO DAILY Aspirin [Ecotrin] 81 mg PO DAILY Vit B Cmplx 3/Folic AC/C/Biot [Nephro-[place] Rx Tablet] 1 tablet PO DAILY glyBURIDE [Glyburide] 5 mg PO BID Insulin Detemir [Levemir FlexPen] 20 unit SUBCUT BEDTIME Discontinued Pravastatin [Pravachol] 20 mg PO BEDTIME - Follow Up or Referral - Forms/Instructions Exam - Constitutional Vitals: Period Temp Pulse Resp BP Sys/Burgess Pulse Ox Last 24 Hr 97.2 F-98.7 F 78-86 18-20 115-142/54-78 96-99 Discharge Results Procedures and tests throughout hospitalization: Pending Orders 04/04/17 Sputum Culture and Gram Stain Routine 04/04/17 15:50 Blood Culture Routine Labs on day of discharge: Labs from last 24 hours 04/06/17 04/06/17 04/05/17 12:03 08:41 21:20 POC Glucose 183 H 67 L 143 H 04/05/17 04/05/17 16:12 13:02 POC Glucose 218 H 119 H Preliminary micro results at discharge 04/04/17 Unknown Sputum Culture - Preliminary Sputum Normal [place] at 24 hours 04/04/17 15:50 Blood Culture - Preliminary Blood No growth at 1 day 04/04/17 15:50 Blood Culture - Preliminary Blood No growth at 1 day DS: Provider Date of admission: 04/03/17 02:03 Primary care physician: Donavan Figueroa MD Attending physician on admission: Db Vance MD Consults: 04/03/17 02:03 Consult to Physician [CONS] Routine Comment: ESRD on HD Consulting Provider: Ari Painter Person Notified: BERYL Date Notified: 04/03/17 Time Notified: 09:22 04/04/17 12:00 Consult to Physician [CONS] Routine Comment: wax impaction marvin; poss foreign body right ear Consulting Provider: Bobby Sebastian Person Notified: aware Date Notified: 04/04/17 Time Notified: 12:07 Discharging clinician: DEREK Ford Expected date of discharge: 04/06/17 <Jessica Arnold - Last Filed: 04/06/17 12:33> Hospital Course - Time spent with patient Time with patient DS: Greater than 30 minutes (Time spent greater than 35mins) Diagnosis - Discharge Diagnosis (1) Impacted cerumen of both ears Status: Acute (2) CAP (community acquired pneumonia) Status: Acute (3) ESRD (end stage renal disease) on dialysis Status: Acute (4) Diabetes mellitus Status: Chronic (5) Hypertension Status: Chronic (6) CHF (congestive heart failure) Status: Acute (7) Dyslipidemia Status: Acute Discharge Plan - Discharge Data Condition at Discharge: Stable Discharge Diet: diabetic diet, heart healthy Activity: resume usual activities as tolerated - Forms/Instructions Additional Discharge Instructions: Follow with PCP in 1week, follow with DR Sebastian as scheduled, follow with Nephrology as informed. Exam - Constitutional General appearance: no acute distress - Head Head exam: Present: normal inspection - Respiratory Respiratory exam: Present: clear to auscultation bilaterally - Cardiovascular Cardiovascular exam: Present: regular rate and rhythm - Neurological Exam Neurological exam: Present: alert, oriented X3
[2017-04-06] MEDS: CALCIUM ACETATE 667 MG CAPSULE PO SCH ×2 (10:29→11:56)
[2017-04-06] MEDS: PANTOPRAZOLE 40 MG TABLET PO SCH (10:29)
[2017-04-06] MEDS: ASPIRIN EC 81 MG TABLET PO SCH (10:29)
[2017-04-06] MEDS: CARVEDILOL 6.25 MG TABLET PO SCH (10:29)
[2017-04-06] MEDS: ATORVASTATIN 80 MG TABLET PO SCH (10:30)
[2017-04-06] MEDS: MULTIVITAMIN (BEROCCA) TABLET PO SCH (10:30)
[2017-04-06] MEDS: INSULIN LISPRO 100 UNIT/ML SUBCUT SCH ×2 (10:32→12:39)
[2017-04-06 12:45] VITALS: BP 129/72
== END 2017-04-06 16:10 | disposition home or self-care (01) | DRG 193 ==
LOC: EDBD → EDUNIT# → N.ED 01:15 → SUATTDRO 02:03 → N.EDINP 02:03 → N.5E 03:16
PROVIDERS: ADMIT Emergency Medicine; ATTEND Internal Medicine

== ENCOUNTER 2017-12-18 15:06 | Inpatient (IN) ==
[2017-12-18] MEDS ORDERED: methylPREDNISolone SOD SUC 125 MG/2 ML VIAL IV STA (15:36)
[2017-12-18] MEDS ORDERED: AMPICILLIN/SULBACTAM 3,000 MG in SODIUM CHLORIDE 0.9% 100 ML IV STA (15:36)
[2017-12-18] MEDS ORDERED: LEVOFLOXACIN INJ 750 MG in PREMIX 1 EACH IV STA (16:08)
[2017-12-18 16:55] LABS: Basophils # 0.1 10*3/uL (0.0-0.2); Basophils % 0.4 % (0.0-0.8); Eosinophils % 0.2 % (0.00-10.9); Hematocrit 34.1 VOL% (42.0-52.0); Hemoglobin 11.6 GM/DL (14.0-18.0); Immature Granulocytes % 0.7 %; Lymphocytes # 0.9 10*3/uL (1.4-4.0); Lymphocytes % 6.4 % (21.2-54.2); Mean Corpuscular Hemoglobin 32 PG (27-34); Mean Corpuscular Volume 93.7 FL (87-102); Mean Platelet Volume 11.3 FL (9.6-12.0); Monocytes # 0.7 10*3/uL (0.11-0.8); Monocytes % 4.7 % (1.7-12.7); Neutrophils # 12.2 10*3/uL (1.4-7.4); Neutrophils % 87.6 % (38.7-73.9); Platelet Count 168 T/CUMM (130-400); Red Blood Count 3.64 MC/CUMM (3.8-5.5); Red Cell Distribution Width 15.1 % (9.3-17.3); White Blood Count 13.9 T/CUMM (4-12)
[2017-12-18 17:05] LABS: Partial Thromboplastin Time 27.5 SECS (0-40)
[2017-12-18 17:24] LABS: Albumin 2.8 G/DL (3.4-5.0); Bilirubin,Total 0.4 MG/DL (0.2-1.0); Calcium 8.4 MG/DL (8.5-10.1); Potassium 4.6 MMOL/L (3.5-5.1); Total Protein 5.2 G/DL (6.4-8.3)
[2017-12-18] MEDS ORDERED: DOCUSATE SODIUM 100 MG CAPSULE PO PRN (19:27)
[2017-12-18] MEDS ORDERED: GLUCAGON 1 MG VIAL IM PRN (19:27)
[2017-12-18] MEDS ORDERED: DEXTROSE 50% 25 GM/50 ML VIAL IV PRN (19:27)
[2017-12-18] MEDS: CARVEDILOL 6.25 MG TABLET PO SCH (20:56)
[2017-12-18] MEDS: BENZONATATE 100 MG CAPSULE PO SCH (20:56)
[2017-12-18] MEDS: INSULIN LISPRO 100 UNIT/ML SUBCUT SCH (22:15)
[2017-12-19] MEDS: ALBUTEROL/IPRATROPIUM 3 ML NEB RESP TX SCH ×4 (00:49→19:18)
[2017-12-19] MEDS: ACETAMINOPHEN 325 MG TABLET PO PRN ×2 (01:18→21:05)
[2017-12-19 05:00] LABS: Basophils % 0.1 % (0.0-0.8); Hematocrit 34.3 VOL% (42.0-52.0); Hemoglobin 11.3 GM/DL (14.0-18.0); Immature Granulocytes % 0.7 %; Lymphocytes # 0.5 10*3/uL (1.4-4.0); Lymphocytes % 3.5 % (21.2-54.2); Mean Corpuscular HGB Conc 32.9 GM/DL (32-36); Mean Corpuscular Hemoglobin 31 PG (27-34); Mean Corpuscular Volume 95.3 FL (87-102); Mean Platelet Volume 11.8 FL (9.6-12.0); Monocytes # 0.4 10*3/uL (0.11-0.8); Monocytes % 3.1 % (1.7-12.7); Neutrophils # 12.5 10*3/uL (1.4-7.4); Neutrophils % 92.6 % (38.7-73.9); Platelet Count 178 T/CUMM (130-400); Red Cell Distribution Width 15.1 % (9.3-17.3); White Blood Count 13.5 T/CUMM (4-12)
[2017-12-19 05:26] LABS: Band Neutrophils 1 % (0-10); Giant Platelets Few; Hypochromasia 1+; Lymphocytes 5 % (20-55); Ovalocytes Slight; Platelet Estimate Normal; Segmented Neutrophils 91 % (50-85); Total Cells Counted 100
[2017-12-19 05:40] LABS: Calcium 8.4 MG/DL (8.5-10.1); Osmolality,Calculated 289.7 MOS/KG (273-304); Potassium 4.5 MMOL/L (3.5-5.1); Thyroid Stimulating Hormone 1.27 uIU/ml (0.358-3.74)
[2017-12-19] MEDS: INSULIN LISPRO 100 UNIT/ML SUBCUT SCH ×4 (09:04→21:02)
[2017-12-19] MEDS: ISOSORBIDE MONONITRATE 30 MG TABLET PO SCH (09:04)
[2017-12-19] MEDS: ASPIRIN EC 81 MG TABLET PO SCH (09:04)
[2017-12-19] MEDS: PANTOPRAZOLE 40 MG TABLET PO SCH (09:04)
[2017-12-19] MEDS: CARVEDILOL 6.25 MG TABLET PO SCH ×2 (09:04→16:48)
[2017-12-19] MEDS: BENZONATATE 100 MG CAPSULE PO SCH ×3 (09:07→21:02)
[2017-12-19] MEDS: glyBURIDE 5 MG TABLET PO SCH ×2 (12:17→21:02)
[2017-12-19] MEDS ORDERED: INSULIN GLARGINE 100 UNIT/ML SUBCUT SCH ×2 (16:00→21:00)
[2017-12-19] MEDS: CALCIUM ACETATE 667 MG CAPSULE PO SCH (16:49)
[2017-12-20] MEDS: ALBUTEROL/IPRATROPIUM 3 ML NEB RESP TX SCH ×3 (00:22→13:36)
[2017-12-20 06:18] LABS: Basophils % 0.2 % (0.0-0.8); Eosinophils # 0.1 10*3/uL (0.0-0.87); Eosinophils % 0.7 % (0.00-10.9); Hematocrit 30.1 VOL% (42.0-52.0); Hemoglobin 10.3 GM/DL (14.0-18.0); Immature Granulocytes % 0.4 %; Immature Granulocytes Absolute 0.05 #; Lymphocytes # 1.6 10*3/uL (1.4-4.0); Lymphocytes % 13.4 % (21.2-54.2); Mean Corpuscular HGB Conc 34.2 GM/DL (32-36); Mean Corpuscular Hemoglobin 32 PG (27-34); Mean Corpuscular Volume 92.9 FL (87-102); Mean Platelet Volume 12.1 FL (9.6-12.0); Monocytes % 8.2 % (1.7-12.7); Neutrophils # 9.5 10*3/uL (1.4-7.4); Neutrophils % 77.1 % (38.7-73.9); Platelet Count 181 T/CUMM (130-400); Red Blood Count 3.24 MC/CUMM (3.8-5.5); Red Cell Distribution Width 15.1 % (9.3-17.3); White Blood Count 12.3 T/CUMM (4-12)
[2017-12-20 07:05] LABS: Calcium 8.3 MG/DL (8.5-10.1); Osmolality,Calculated 301.2 MOS/KG (273-304); Potassium 3.8 MMOL/L (3.5-5.1)
[2017-12-20] MEDS: CALCIUM ACETATE 667 MG CAPSULE PO SCH ×2 (07:57→14:45)
[2017-12-20] MEDS: LORATADINE 10 MG TABLET PO SCH ×2 (07:58→08:15)
[2017-12-20] MEDS: BENZONATATE 100 MG CAPSULE PO SCH ×3 (07:58→14:45)
[2017-12-20] MEDS: MULTIVITAMIN (BEROCCA) TABLET PO SCH ×2 (07:58→08:15)
[2017-12-20] MEDS: ASPIRIN EC 81 MG TABLET PO SCH ×2 (07:58→08:15)
[2017-12-20] MEDS: PANTOPRAZOLE 40 MG TABLET PO SCH ×2 (07:58→08:16)
[2017-12-20] MEDS: glyBURIDE 5 MG TABLET PO SCH (07:59)
[2017-12-20] MEDS: CARVEDILOL 6.25 MG TABLET PO SCH (07:59)
[2017-12-20] MEDS: ISOSORBIDE MONONITRATE 30 MG TABLET PO SCH ×2 (07:59→08:15)
[2017-12-20 08:15] VITALS: BP 109/55
[2017-12-20] MEDS: INSULIN LISPRO 100 UNIT/ML SUBCUT SCH ×2 (08:19→13:42)
[2017-12-20] MEDS ORDERED: LEVOFLOXACIN INJ 500 MG in PREMIX 1 EACH IV SCH (09:00)
[2017-12-20] MEDS ORDERED: INSULIN GLARGINE 100 UNIT/ML SUBCUT ONE (16:00)
[2017-12-25] MEDS ORDERED: IRON SUCROSE 100 MG/5 ML VIAL IV SCH (10:34)
== END 2017-12-20 15:13 | disposition home or self-care (01) | DRG 193 ==
LOC: EDUNIT# → EDBD → N.ED 15:06 → N.EDINP 17:04 → N.2E 19:15
PROVIDERS: ADMIT Internal Medicine; ATTEND Internal Medicine

== ENCOUNTER 2018-09-04 02:38 | Inpatient (IN) ==
[2018-09-04] MEDS ORDERED: DOCUSATE SODIUM 100 MG CAPSULE PO PRN (05:50)
[2018-09-04] MEDS ORDERED: diphenhydrAMINE CAP 25 MG CAPSULE PO PRN (05:50)
[2018-09-04] MEDS ORDERED: NICOTINE 21 MG/24 HR PATCH TRANSDERM PRN (05:50)
[2018-09-04] MEDS: cefTRIAXone 1,000 MG in SYRINGE 1 EACH IV SCH (06:25)
[2018-09-04] MEDS ORDERED: GLUCAGON 1 MG VIAL IM PRN (06:45)
[2018-09-04] MEDS ORDERED: DEXTROSE 50% 25 GM/50 ML SYRINGE IV PRN (06:45)
[2018-09-04] MEDS: ALBUTEROL/IPRATROPIUM 3 ML NEB RESP TX SCH ×5 (07:30→23:18)
[2018-09-04 07:46] LABS: Basophils % 0.6 % (0.0-0.8); Eosinophils % 0.4 % (0.00-10.9); Hematocrit 28.6 VOL% (42.0-52.0); Hemoglobin 8.9 GM/DL (14.0-18.0); Immature Granulocytes % 0.4 %; Immature Granulocytes Absolute 0.02 #; Lymphocytes # 0.8 10*3/uL (1.4-4.0); Lymphocytes % 16.2 % (21.2-54.2); Mean Corpuscular HGB Conc 31.1 GM/DL (32-36); Mean Corpuscular Hemoglobin 30 PG (27-34); Mean Corpuscular Volume 97.3 FL (87-102); Mean Platelet Volume 10.8 FL (9.6-12.0); Monocytes # 0.4 10*3/uL (0.11-0.8); Monocytes % 7.6 % (1.7-12.7); Neutrophils # 3.6 10*3/uL (1.4-7.4); Neutrophils % 74.8 % (38.7-73.9); Platelet Count 156 T/CUMM (130-400); Red Blood Count 2.94 MC/CUMM (3.8-5.5); Red Cell Distribution Width 17.3 % (9.3-17.3); White Blood Count 4.9 T/CUMM (4-12)
[2018-09-04 08:12] LABS: Albumin 3.3 G/DL (3.4-5.0); Bilirubin,Total 0.5 MG/DL (0.2-1.0); Calcium 8.7 MG/DL (8.5-10.1); Osmolality,Calculated 275.1 MOS/KG (273-304); Potassium 3.6 MMOL/L (3.5-5.1); Total Protein 7.8 G/DL (6.4-8.3)
[2018-09-04] MEDS ORDERED: ISOSORBIDE MONONITRATE 30 MG TABLET PO SCH (09:00)
[2018-09-04] MEDS: CARVEDILOL 6.25 MG TABLET PO SCH ×2 (09:19→20:13)
[2018-09-04] MEDS: CALCIUM ACETATE 667 MG CAPSULE PO SCH ×3 (09:19→20:13)
[2018-09-04] MEDS: PANTOPRAZOLE 40 MG TABLET PO SCH (09:19)
[2018-09-04] MEDS: ASPIRIN EC 81 MG TABLET PO SCH (09:19)
[2018-09-04] MEDS: AZITHROMYCIN INJ 500 MG in SODIUM CHLORIDE 0.9% 250 ML IV SCH (09:21)
[2018-09-04] MEDS: INSULIN REGULAR 100 UNIT/ML SUBCUT SCH ×2 (12:44→18:19)
[2018-09-04] MEDS: HEPARIN 5,000 UNIT/1 ML VIAL SUBCUT SCH (16:50)
[2018-09-04] MEDS: ACETAMINOPHEN 325 MG TABLET PO PRN (18:18)
[2018-09-04] MEDS: MORPHINE 4 MG/1 ML VIAL IV PRN (20:12)
[2018-09-04] MEDS: INSULIN GLARGINE 100 UNIT/ML SUBCUT SCH (20:13)
[2018-09-04] MEDS ORDERED: INSULIN DETEMIR 20 UNIT SUBCUT SCH (21:00)
[2018-09-05] MEDS: HEPARIN 5,000 UNIT/1 ML VIAL SUBCUT SCH ×4 (01:03→21:18)
[2018-09-05] MEDS: INSULIN REGULAR 100 UNIT/ML SUBCUT SCH ×4 (01:33→18:11)
[2018-09-05] MEDS: ALBUTEROL/IPRATROPIUM 3 ML NEB RESP TX SCH ×6 (03:23→23:19)
[2018-09-05 05:08] LABS: Basophils % 0.5 % (0.0-0.8); Eosinophils % 0.7 % (0.00-10.9); Hematocrit 27.8 VOL% (42.0-52.0); Hemoglobin 8.7 GM/DL (14.0-18.0); Immature Granulocytes % 0.5 %; Immature Granulocytes Absolute 0.03 #; Lymphocytes # 0.6 10*3/uL (1.4-4.0); Lymphocytes % 10.9 % (21.2-54.2); Mean Corpuscular HGB Conc 31.3 GM/DL (32-36); Mean Corpuscular Hemoglobin 30 PG (27-34); Mean Corpuscular Volume 95.9 FL (87-102); Mean Platelet Volume 11.1 FL (9.6-12.0); Monocytes # 0.4 10*3/uL (0.11-0.8); Monocytes % 7.3 % (1.7-12.7); Neutrophils # 4.4 10*3/uL (1.4-7.4); Neutrophils % 80.1 % (38.7-73.9); Platelet Count 122 T/CUMM (130-400); Red Cell Distribution Width 17.2 % (9.3-17.3); White Blood Count 5.5 T/CUMM (4-12)
[2018-09-05] MEDS: cefTRIAXone 1,000 MG in SYRINGE 1 EACH IV SCH (05:16)
[2018-09-05 05:33] LABS: Calcium 9.2 MG/DL (8.5-10.1); Osmolality,Calculated 278.4 MOS/KG (273-304); Potassium 3.5 MMOL/L (3.5-5.1)
[2018-09-05] MEDS: AZITHROMYCIN INJ 500 MG in SODIUM CHLORIDE 0.9% 250 ML IV SCH (06:40)
[2018-09-05] MEDS: ACETAMINOPHEN 325 MG TABLET PO PRN ×3 (07:32→21:36)
[2018-09-05] MEDS: ASPIRIN EC 81 MG TABLET PO SCH (09:01)
[2018-09-05] MEDS: CALCIUM ACETATE 667 MG CAPSULE PO SCH ×3 (09:01→21:16)
[2018-09-05] MEDS: PANTOPRAZOLE 40 MG TABLET PO SCH (09:01)
[2018-09-05] MEDS: CARVEDILOL 6.25 MG TABLET PO SCH ×2 (09:01→21:16)
[2018-09-05] MEDS: MORPHINE 4 MG/1 ML VIAL IV PRN ×2 (14:03→21:33)
[2018-09-05] MEDS: INSULIN GLARGINE 100 UNIT/ML SUBCUT SCH (21:16)
[2018-09-06] MEDS: INSULIN REGULAR 100 UNIT/ML SUBCUT SCH ×5 (01:30→23:52)
[2018-09-06] MEDS: ALBUTEROL/IPRATROPIUM 3 ML NEB RESP TX SCH ×6 (02:22→23:44)
[2018-09-06] MEDS: ACETAMINOPHEN 325 MG TABLET PO PRN ×3 (04:22→23:20)
[2018-09-06] MEDS: AZITHROMYCIN INJ 500 MG in SODIUM CHLORIDE 0.9% 250 ML IV SCH (06:30)
[2018-09-06] MEDS: cefTRIAXone 1,000 MG in SYRINGE 1 EACH IV SCH (06:30)
[2018-09-06] MEDS: HEPARIN 5,000 UNIT/1 ML VIAL SUBCUT SCH ×3 (06:30→21:13)
[2018-09-06 07:03] LABS: Basophils % 0.4 % (0.0-0.8); Eosinophils # 0.1 10*3/uL (0.0-0.87); Hematocrit 26.8 VOL% (42.0-52.0); Hemoglobin 8.4 GM/DL (14.0-18.0); Immature Granulocytes % 0.4 %; Immature Granulocytes Absolute 0.02 #; Lymphocytes # 0.5 10*3/uL (1.4-4.0); Lymphocytes % 11.3 % (21.2-54.2); Mean Corpuscular HGB Conc 31.3 GM/DL (32-36); Mean Corpuscular Hemoglobin 30 PG (27-34); Mean Corpuscular Volume 96.1 FL (87-102); Mean Platelet Volume 11.9 FL (9.6-12.0); Monocytes # 0.3 10*3/uL (0.11-0.8); Monocytes % 6.3 % (1.7-12.7); Neutrophils # 3.9 10*3/uL (1.4-7.4); Neutrophils % 80.6 % (38.7-73.9); Platelet Count 101 T/CUMM (130-400); Red Blood Count 2.79 MC/CUMM (3.8-5.5); Red Cell Distribution Width 17.1 % (9.3-17.3); White Blood Count 4.8 T/CUMM (4-12)
[2018-09-06] MEDS: CARVEDILOL 6.25 MG TABLET PO SCH ×2 (09:20→16:20)
[2018-09-06] MEDS: ASPIRIN EC 81 MG TABLET PO SCH (09:20)
[2018-09-06] MEDS: CALCIUM ACETATE 667 MG CAPSULE PO SCH ×3 (09:20→21:13)
[2018-09-06] MEDS: PANTOPRAZOLE 40 MG TABLET PO SCH (09:21)
[2018-09-06] MEDS ORDERED: LEVOFLOXACIN INJ 750 MG in PREMIX 1 EACH IV ONE (10:00)
[2018-09-06] MEDS ORDERED: VANCOMYCIN INJ 1,500 MG in SODIUM CHLORIDE 0.9% 500 ML IV ONE (11:00)
[2018-09-06] MEDS: CEFEPIME 1,000 MG in SYRINGE 1 EACH IV SCH (11:16)
[2018-09-06] MEDS ORDERED: VANCOMYCIN INJ 500 MG in SODIUM CHLORIDE 0.9% 100 ML IV PRN (11:52)
[2018-09-06 21:44] LABS: Amorphous Crystals,Urine Occasional /HPF (Few); Apearance,Urine CLOUDY (Clear); Bacteria,Urine Occasional /HPF (Few); Blood, Urine Small mg/dL (Negative); Glucose,Urine (UA) Negative (Negative); Ketones,Urine 5 mg/dL (Negative); Mucus,Urine Occasional /LPF (Occasional); Nitrite,Urine Negative (Negative); Protein,Urine 100 MG/DL; Squamous Epithelial Cell,Urine Occasional /HPF (0-10); Urine Specific Gravity 1.025 (1.001-1.035); Urine Urobilinogen < 2.0 EU/DL (0.2-1.0); WBC,Urine 5 /HPF (0-6)
[2018-09-06 21:45] LABS: Bilirubin,Urine Small mg/dL (Negative); Urine Color Yellow (Yellow)
[2018-09-06] MEDS: ALUMINUM/MAGNES/SIMETH MAX STR 30 ML UDCUP PO PRN (23:15)
[2018-09-07] MEDS: ALBUTEROL/IPRATROPIUM 3 ML NEB RESP TX SCH ×6 (03:19→23:39)
[2018-09-07] MEDS: HEPARIN 5,000 UNIT/1 ML VIAL SUBCUT SCH ×3 (06:24→20:37)
[2018-09-07] MEDS: INSULIN REGULAR 100 UNIT/ML SUBCUT SCH ×3 (07:30→18:46)
[2018-09-07 09:35] LABS: Basophils % 0.5 % (0.0-0.8); Eosinophils # 0.2 10*3/uL (0.0-0.87); Eosinophils % 3.6 % (0.00-10.9); Hematocrit 25.1 VOL% (42.0-52.0); Hemoglobin 8.3 GM/DL (14.0-18.0); Immature Granulocytes % 0.5 %; Immature Granulocytes Absolute 0.02 #; Lymphocytes # 0.6 10*3/uL (1.4-4.0); Mean Corpuscular HGB Conc 33.1 GM/DL (32-36); Mean Corpuscular Hemoglobin 31 PG (27-34); Mean Platelet Volume 11.5 FL (9.6-12.0); Monocytes # 0.3 10*3/uL (0.11-0.8); Monocytes % 6.2 % (1.7-12.7); Neutrophils # 3.2 10*3/uL (1.4-7.4); Neutrophils % 75.2 % (38.7-73.9); Red Blood Count 2.67 MC/CUMM (3.8-5.5); Red Cell Distribution Width 16.8 % (9.3-17.3); White Blood Count 4.2 T/CUMM (4-12)
[2018-09-07 09:37] LABS: Platelet Count 97 T/CUMM (130-400)
[2018-09-07 09:54] LABS: Calcium 8.4 MG/DL (8.5-10.1); Osmolality,Calculated 279.2 MOS/KG (273-304); Potassium 3.8 MMOL/L (3.5-5.1)
[2018-09-07] MEDS: PANTOPRAZOLE 40 MG TABLET PO SCH (11:09)
[2018-09-07] MEDS: ASPIRIN EC 81 MG TABLET PO SCH (11:09)
[2018-09-07] MEDS: CARVEDILOL 6.25 MG TABLET PO SCH ×2 (11:09→17:13)
[2018-09-07] MEDS: CALCIUM ACETATE 667 MG CAPSULE PO SCH ×3 (11:09→20:37)
[2018-09-07] MEDS ORDERED: VANCOMYCIN INJ 500 MG in SODIUM CHLORIDE 0.9% 100 ML IV ONE (13:00)
[2018-09-07] MEDS: ACETAMINOPHEN 325 MG TABLET PO PRN (16:57)
[2018-09-07] MEDS: CEFEPIME 1,000 MG in SYRINGE 1 EACH IV SCH (16:57)
[2018-09-07 17:04] LABS: Hematocrit 25.8 VOL% (42.0-52.0); Hemoglobin 8.2 GM/DL (14.0-18.0)
[2018-09-07] MEDS ORDERED: BENZOCAINE/MENTHOL LOZENGE 18/BOX PO PRN (17:54)
[2018-09-08] MEDS: INSULIN REGULAR 100 UNIT/ML SUBCUT SCH ×4 (00:40→17:36)
[2018-09-08] MEDS: ALBUTEROL/IPRATROPIUM 3 ML NEB RESP TX SCH ×6 (03:37→23:31)
[2018-09-08 05:03] LABS: Basophils % 0.2 % (0.0-0.8); Eosinophils # 0.2 10*3/uL (0.0-0.87); Eosinophils % 3.2 % (0.00-10.9); Hematocrit 25.3 VOL% (42.0-52.0); Immature Granulocytes % 0.6 %; Immature Granulocytes Absolute 0.03 #; Lymphocytes # 0.6 10*3/uL (1.4-4.0); Lymphocytes % 12.8 % (21.2-54.2); Mean Corpuscular HGB Conc 31.6 GM/DL (32-36); Mean Corpuscular Hemoglobin 30 PG (27-34); Mean Corpuscular Volume 94.8 FL (87-102); Mean Platelet Volume 11.6 FL (9.6-12.0); Monocytes # 0.3 10*3/uL (0.11-0.8); Monocytes % 5.5 % (1.7-12.7); Neutrophils # 3.8 10*3/uL (1.4-7.4); Neutrophils % 77.7 % (38.7-73.9); Platelet Count 123 T/CUMM (130-400); Red Blood Count 2.67 MC/CUMM (3.8-5.5); Red Cell Distribution Width 16.9 % (9.3-17.3); White Blood Count 4.9 T/CUMM (4-12)
[2018-09-08 05:23] LABS: Calcium 8.5 MG/DL (8.5-10.1); Osmolality,Calculated 276.4 MOS/KG (273-304); Potassium 3.9 MMOL/L (3.5-5.1)
[2018-09-08] MEDS: HEPARIN 5,000 UNIT/1 ML VIAL SUBCUT SCH ×3 (05:59→20:38)
[2018-09-08] MEDS: ACETAMINOPHEN 325 MG TABLET PO PRN ×2 (08:24→13:14)
[2018-09-08] MEDS: CALCIUM ACETATE 667 MG CAPSULE PO SCH ×3 (08:24→20:37)
[2018-09-08] MEDS: CARVEDILOL 6.25 MG TABLET PO SCH ×2 (08:24→17:35)
[2018-09-08] MEDS: ASPIRIN EC 81 MG TABLET PO SCH (09:10)
[2018-09-08] MEDS: PANTOPRAZOLE 40 MG TABLET PO SCH (09:10)
[2018-09-08] MEDS ORDERED: LEVOFLOXACIN INJ 500 MG in PREMIX 1 EACH IV SCH (17:00)
[2018-09-08] MEDS: CEFEPIME 1,000 MG in SYRINGE 1 EACH IV SCH (17:25)
[2018-09-09] MEDS: ACETAMINOPHEN 325 MG TABLET PO PRN ×3 (00:11→21:07)
[2018-09-09] MEDS: INSULIN REGULAR 100 UNIT/ML SUBCUT SCH ×4 (00:11→18:35)
[2018-09-09] MEDS: ALUMINUM/MAGNES/SIMETH MAX STR 30 ML UDCUP PO PRN (02:33)
[2018-09-09] MEDS: ALBUTEROL/IPRATROPIUM 3 ML NEB RESP TX SCH ×6 (04:22→23:40)
[2018-09-09] MEDS: HEPARIN 5,000 UNIT/1 ML VIAL SUBCUT SCH ×3 (05:48→21:06)
[2018-09-09 05:56] LABS: Basophils % 0.3 % (0.0-0.8); Eosinophils # 0.3 10*3/uL (0.0-0.87); Eosinophils % 4.5 % (0.00-10.9); Hemoglobin 7.7 GM/DL (14.0-18.0); Immature Granulocytes % 0.3 %; Immature Granulocytes Absolute 0.02 #; Lymphocytes # 0.9 10*3/uL (1.4-4.0); Lymphocytes % 15.3 % (21.2-54.2); Mean Corpuscular HGB Conc 32.1 GM/DL (32-36); Mean Corpuscular Hemoglobin 30 PG (27-34); Mean Corpuscular Volume 94.9 FL (87-102); Mean Platelet Volume 11.7 FL (9.6-12.0); Monocytes # 0.4 10*3/uL (0.11-0.8); Monocytes % 6.5 % (1.7-12.7); Neutrophils # 4.4 10*3/uL (1.4-7.4); Neutrophils % 73.1 % (38.7-73.9); Platelet Count 155 T/CUMM (130-400); Red Blood Count 2.53 MC/CUMM (3.8-5.5); Red Cell Distribution Width 16.6 % (9.3-17.3)
[2018-09-09 06:21] LABS: Eosinophils 4 % (0-10); Hypochromasia 1+; Lymphocytes 13 % (20-55); Metamyelocytes 1 %; Platelet Estimate Adequate; Segmented Neutrophils 81 % (50-85); Total Cells Counted 100
[2018-09-09] MEDS: PANTOPRAZOLE 40 MG TABLET PO SCH (08:41)
[2018-09-09] MEDS: ASPIRIN EC 81 MG TABLET PO SCH (08:41)
[2018-09-09] MEDS: CALCIUM ACETATE 667 MG CAPSULE PO SCH ×3 (08:41→16:51)
[2018-09-09] MEDS: CARVEDILOL 6.25 MG TABLET PO SCH ×2 (08:41→16:52)
[2018-09-09] MEDS: CEFEPIME 1,000 MG in SYRINGE 1 EACH IV SCH (16:52)
[2018-09-10] MEDS: INSULIN REGULAR 100 UNIT/ML SUBCUT SCH ×4 (01:54→18:27)
[2018-09-10] MEDS: ALBUTEROL/IPRATROPIUM 3 ML NEB RESP TX SCH ×6 (03:56→23:16)
[2018-09-10] MEDS: ONDANSETRON 4 MG/2 ML VIAL IV PRN (04:39)
[2018-09-10] MEDS: HEPARIN 5,000 UNIT/1 ML VIAL SUBCUT SCH ×3 (05:34→21:49)
[2018-09-10 07:44] LABS: Basophils % 0.1 % (0.0-0.8); Eosinophils # 0.2 10*3/uL (0.0-0.87); Eosinophils % 3.4 % (0.00-10.9); Hematocrit 25.2 VOL% (42.0-52.0); Immature Granulocytes % 0.9 %; Immature Granulocytes Absolute 0.06 #; Lymphocytes # 0.9 10*3/uL (1.4-4.0); Lymphocytes % 12.6 % (21.2-54.2); Mean Corpuscular HGB Conc 31.7 GM/DL (32-36); Mean Corpuscular Hemoglobin 30 PG (27-34); Mean Corpuscular Volume 94.7 FL (87-102); Mean Platelet Volume 11.2 FL (9.6-12.0); Monocytes # 0.4 10*3/uL (0.11-0.8); Monocytes % 5.2 % (1.7-12.7); Neutrophils # 5.4 10*3/uL (1.4-7.4); Neutrophils % 77.8 % (38.7-73.9); Platelet Count 210 T/CUMM (130-400); Red Blood Count 2.66 MC/CUMM (3.8-5.5); Red Cell Distribution Width 16.6 % (9.3-17.3)
[2018-09-10 08:02] LABS: Calcium 9.7 MG/DL (8.5-10.1); Osmolality,Calculated 284.4 MOS/KG (273-304); Potassium 4.4 MMOL/L (3.5-5.1)
[2018-09-10 08:05] LABS: Anisocytosis 1+; Band Neutrophils 6 % (0-10); Eosinophils 3 % (0-10); Lymphocytes 13 % (20-55); Platelet Estimate Normal; Segmented Neutrophils 72 % (50-85); Total Cells Counted 100
[2018-09-10] MEDS: CARVEDILOL 6.25 MG TABLET PO SCH ×2 (10:42→17:25)
[2018-09-10] MEDS: CALCIUM ACETATE 667 MG CAPSULE PO SCH ×3 (10:42→17:25)
[2018-09-10] MEDS: ASPIRIN EC 81 MG TABLET PO SCH (10:42)
[2018-09-10] MEDS: PANTOPRAZOLE 40 MG TABLET PO SCH (10:42)
[2018-09-10] MEDS ORDERED: DEXTROSE 50% 25 GM/50 ML VIAL IV PRN (12:39)
[2018-09-10] MEDS ORDERED: GLUCAGON 1 MG VIAL IM PRN (12:39)
[2018-09-10] MEDS ORDERED: VANCOMYCIN INJ 500 MG in SODIUM CHLORIDE 0.9% 100 ML IV ONE (17:00)
[2018-09-11] MEDS: INSULIN REGULAR 100 UNIT/ML SUBCUT SCH ×4 (00:16→18:27)
[2018-09-11] MEDS: ALBUTEROL/IPRATROPIUM 3 ML NEB RESP TX SCH ×6 (03:11→23:18)
[2018-09-11] MEDS: HEPARIN 5,000 UNIT/1 ML VIAL SUBCUT SCH ×3 (05:27→21:07)
[2018-09-11] MEDS: CALCIUM ACETATE 667 MG CAPSULE PO SCH ×3 (09:06→16:55)
[2018-09-11] MEDS: ASPIRIN EC 81 MG TABLET PO SCH (09:07)
[2018-09-11] MEDS: CARVEDILOL 6.25 MG TABLET PO SCH ×2 (09:07→16:55)
[2018-09-11] MEDS: PANTOPRAZOLE 40 MG TABLET PO SCH (09:07)
[2018-09-12] MEDS: ONDANSETRON 4 MG/2 ML VIAL IV PRN (00:19)
[2018-09-12] MEDS: INSULIN REGULAR 100 UNIT/ML SUBCUT SCH ×4 (00:26→18:18)
[2018-09-12] MEDS: ALBUTEROL/IPRATROPIUM 3 ML NEB RESP TX SCH ×6 (03:40→14:31)
[2018-09-12] MEDS: HEPARIN 5,000 UNIT/1 ML VIAL SUBCUT SCH ×2 (05:58→15:42)
[2018-09-12 06:02] LABS: Basophils % 0.3 % (0.0-0.8); Eosinophils # 0.2 10*3/uL (0.0-0.87); Eosinophils % 3.4 % (0.00-10.9); Hemoglobin 7.8 GM/DL (14.0-18.0); Immature Granulocytes % 0.9 %; Immature Granulocytes Absolute 0.06 #; Lymphocytes # 1.1 10*3/uL (1.4-4.0); Lymphocytes % 15.4 % (21.2-54.2); Mean Corpuscular HGB Conc 31.2 GM/DL (32-36); Mean Corpuscular Hemoglobin 30 PG (27-34); Mean Corpuscular Volume 95.8 FL (87-102); Mean Platelet Volume 10.7 FL (9.6-12.0); Monocytes # 0.6 10*3/uL (0.11-0.8); Platelet Count 259 T/CUMM (130-400); Red Blood Count 2.61 MC/CUMM (3.8-5.5); Red Cell Distribution Width 17.3 % (9.3-17.3)
[2018-09-12 06:25] LABS: Calcium 8.4 MG/DL (8.5-10.1); Osmolality,Calculated 285.7 MOS/KG (273-304); Potassium 4.4 MMOL/L (3.5-5.1)
[2018-09-12] MEDS ORDERED: PROMETHAZINE 25 MG/1 ML VIAL IM ONE (07:00)
[2018-09-12] MEDS ORDERED: MEPERIDINE 50 MG/1 ML VIAL IM ONE (07:00)
[2018-09-12] MEDS ORDERED: MIDAZOLAM 2 MG/2 ML VIAL ONE (07:07)
[2018-09-12] MEDS ORDERED: LIDOCAINE 2% 20 ML VIAL RESP TX ONE (07:30)
[2018-09-12] MEDS ORDERED: MIDAZOLAM 2 MG/2 ML VIAL IV ONE (07:30)
[2018-09-12] MEDS ORDERED: LIDOCAINE 1% 20 ML VIAL MISC INJ ONE (07:30)
[2018-09-12] MEDS ORDERED: LIDOCAINE 2% VISCOUS 100 ML BOTTLE SWISH/SPIT ONE (07:30)
[2018-09-12 07:54] VITALS: BP 102/59
[2018-09-12] MEDS: CALCIUM ACETATE 667 MG CAPSULE PO SCH ×3 (09:39→17:45)
[2018-09-12] MEDS: methylPREDNISolone SOD SUC 40 MG/1 ML VIAL IV SCH ×2 (09:39→17:46)
[2018-09-12] MEDS: PANTOPRAZOLE 40 MG TABLET PO SCH (09:39)
[2018-09-12] MEDS: CARVEDILOL 6.25 MG TABLET PO SCH ×2 (09:39→17:45)
[2018-09-12] MEDS: ASPIRIN EC 81 MG TABLET PO SCH (09:39)
[2018-09-12] MEDS ORDERED: EPOETIN ALFA 10,000 UNIT/1 ML VIAL IV PRN (11:29)
[2018-09-12] MEDS ORDERED: VANCOMYCIN INJ 500 MG in SODIUM CHLORIDE 0.9% 100 ML IV ONE (13:00)
== END 2018-09-12 18:17 | disposition home or self-care (01) | DRG 193 ==
LOC: SUATTDRO 04:06 → N.TELEN 04:06 → N.2E 09-05 14:54
PROVIDERS: ADMIT Internal Medicine; ATTEND Internal Medicine